=== PATIENT | female | born 1995 | race Caucasian/White ===

== ENCOUNTER 2020-04-18 15:02 | Inpatient (IN) | payer MEDICAID ==
[~2020-04-18] VITALS: Ht 157.5 cm; Wt 68.2 kg
[2020-04-18 15:44] LABS: AMPHETAMINE SCREEN, URINE Negative (Negative); BARBITURATE SCREEN, URINE Negative (Negative); BENZODIAZEPINE SCREEN, URINE Negative (Negative); CANNABINOID SCREEN, URINE Positive (Negative); COCAINE SCREEN, URINE Negative (Negative); METHADONE SCREEN, URINE Negative (Negative); OPIATE SCREEN, URINE Negative (Negative)
[2020-04-18] MEDS ORDERED: PREN1TAB60 PO (15:47)
[2020-04-18 15:48] VITALS: BP 139/64
[2020-04-18 15:55] LABS: MICROSCOPIC INDICATED
[2020-04-18] MEDS ORDERED: LIDOCAINE 1%, 20ML ONE (18:00)
[2020-04-18] MEDS ORDERED: NEWBORN KIT ONE (18:00)
[2020-04-18] MEDS ORDERED: MISOPROSTOL 200 MCG TABLET ONE (18:01)
[2020-04-18] MEDS ORDERED: OXYTOCIN 30U/ 0.9% NaCL 500ML 500 ML ONE (18:01)
[2020-04-18] MEDS ORDERED: D5%-LACTATED RINGERS 1,000 ML IV SCH (18:02)
[2020-04-18] MEDS ORDERED: LACTATED RINGERS 1,000 ML IV SCH (18:02)
[2020-04-18] MEDS ORDERED: OXYTOCIN 30U/ 0.9% NaCL 500ML 500 ML IV ONE (18:02)
[2020-04-18] MEDS ORDERED: OXYTOCIN 30U/ 0.9% NaCL 500ML 500 ML IV PRN (18:02)
[2020-04-18] MEDS ORDERED: FENTANYL PF 100 MCG/2ML ONE (18:15)
[2020-04-18] MEDS ORDERED: FENTANYL PF 100 MCG/2ML IV PRN (18:30)
[2020-04-18] MEDS ORDERED: CALCIUM CARBONATE 500 MG TAB.CHEW PO PRN (18:30)
[2020-04-18] MEDS ORDERED: TERBUTALINE 1 MG/ML, 1ML IVPush PRN (18:30)
[2020-04-18] MEDS ORDERED: TERBUTALINE 1 MG/ML, 1ML SQ PRN (18:30)
[2020-04-18] MEDS ORDERED: ONDANSETRON 2MG/ML, 2ML IVPush PRN (18:30)
[2020-04-18] MEDS ORDERED: FENTANYL PF 100 MCG/2ML IVPush PRN (18:30)
[2020-04-18] MEDS: OXYTOCIN 30U/ 0.9% NaCL 500ML 500 ML IV SCH (18:42)
[2020-04-18 18:51] LABS: MEAN CORPUSCULAR HEMOGLOBIN 32.1 pg (27.0-34.8); MEAN CORPUSCULAR HGB CONC 33.9 g/dL (32.4-35.8); MEAN CORPUSCULAR VOLUME 94.8 fL (80-100); MEAN PLATELET VOLUME 8.6 fL (7.4-10.4); PLATELET COUNT 328 x10^3/uL (130-400); RED BLOOD COUNT 4.71 x10^6/uL (3.82-5.3); RED CELL DISTRIBUTION WIDTH 12.7 % (9.6-15.2)
[2020-04-18] MEDS ORDERED: OXYcodone IR 5MG TABLET PO PRN (19:00)
[2020-04-18] MEDS ORDERED: DOCUSATE 100 MG CAPSULE PO PRN (19:00)
[2020-04-18] MEDS ORDERED: CARBOPROST TROMETHAMINE 250 MCG/ML, 1ML IM PRN (19:00)
[2020-04-18] MEDS ORDERED: SIMETHICONE 80 MG CHEW TAB PO PRN (19:00)
[2020-04-18] MEDS ORDERED: ONDANSETRON 2MG/ML, 2ML IV PRN (19:00)
[2020-04-18] MEDS ORDERED: METOCLOPRAMIDE 5 MG/ML, 2ML IV PRN (19:00)
[2020-04-18] MEDS ORDERED: IBUPROFEN 800 MG TABLET PO PRN (19:00)
[2020-04-18] MEDS ORDERED: METHYLERGONOVINE 0.2 MG/ML IM PRN (19:00)
[2020-04-18] MEDS ORDERED: MISOPROSTOL 200 MCG TABLET PR PRN (19:00)
[2020-04-18] MEDS ORDERED: ACETAMINOPHEN 325 MG TABLET PO PRN (19:00)
[2020-04-18] MEDS ORDERED: IBUPROFEN 800 MG TABLET ONE (19:04)
[2020-04-18 19:14] LABS: BASOPHILS # (AUTO) 0.01 x10^3/uL (0-0.1); BASOPHILS % (AUTO) 0 % (0-1); EOSINOPHILS % (AUTO) 0 % (1-7); LYMPHOCYTES # (AUTO) 1.51 x10^3/uL (1-3.4); LYMPHOCYTES % (AUTO) 8 % (22-44); MD SCAN; MONOCYTES # (AUTO) 0.24 x10^3/uL (0.2-0.8); MONOCYTES % (AUTO) 1 % (2-9); NEUTROPHILS # (AUTO) 16.64 x10^3/uL (1.8-6.8); NEUTROPHILS % (AUTO) 90 % (42-75)
[2020-04-18 20:45] VITALS: BP 105/64
[2020-04-19] VITALS: BP 100/60
[2020-04-19] MEDS: OXYTOCIN 30U/ 0.9% NaCL 500ML 500 ML IV SCH ×2 (04:42→14:42)
[2020-04-19 05:00] VITALS: BP 94/54
[2020-04-19 06:28] LABS: BASOPHILS # (AUTO) 0.05 x10^3/uL (0-0.1); BASOPHILS % (AUTO) 0 % (0-1); EOSINOPHILS # (AUTO) 0.01 x10^3/uL (0-0.4); EOSINOPHILS % (AUTO) 0 % (1-7); LYMPHOCYTES % (AUTO) 16 % (22-44); MD NO; MEAN CORPUSCULAR HEMOGLOBIN 32.1 pg (27.0-34.8); MEAN CORPUSCULAR HGB CONC 33.7 g/dL (32.4-35.8); MEAN CORPUSCULAR VOLUME 95.1 fL (80-100); MONOCYTES % (AUTO) 7 % (2-9); NEUTROPHILS # (AUTO) 12.48 x10^3/uL (1.8-6.8); NEUTROPHILS % (AUTO) 77 % (42-75); PLATELET COUNT 267 x10^3/uL (130-400); RED BLOOD COUNT 4.03 x10^6/uL (3.82-5.3); RED CELL DISTRIBUTION WIDTH 13.2 % (9.6-15.2)
[2020-04-19 07:30] VITALS: BP 92/52
[2020-04-19] MEDS: PRENATAL VIT/IRON/FA 1 EACH TABLET PO SCH (09:00)
[2020-04-19 12:00] VITALS: BP 98/63
[2020-04-19 20:00] VITALS: BP 105/59
[2020-04-20] MEDS: OXYTOCIN 30U/ 0.9% NaCL 500ML 500 ML IV SCH (00:42)
[2020-04-20 08:00] VITALS: BP 93/55
[2020-04-20] MEDS: PRENATAL VIT/IRON/FA 1 EACH TABLET PO SCH (09:00)
[2020-04-20] MEDS: IBUPROFEN 600 MG TABLET PO PRN ×2 (11:40→17:42)
[2020-04-20] MEDS ORDERED: IBUP-1222 PO (11:50)
[2020-04-20] MEDS: OXYcodone/APAP 5/325MG TABLET PO PRN ×2 (12:29→17:43)
== END 2020-04-20 19:23 | disposition home or self-care (01) | DRG 806 ==
LOC: LDOP 15:02 → OBSVTOIN 17:11 → LDIP 17:11 → 2NW 20:35
PROVIDERS: ADMIT Student in an Organized Health Care Education/Training Program; ATTEND Student in an Organized Health Care Education/Training Program
PROC: 10E0XZZ Delivery of Products of Conception, External Approach (ICD-10-PCS; principal; 2020-04-18)
DX: O70.0 First degree perineal laceration during delivery (principal); O99.324 Drug use complicating childbirth; Z37.0 Single live birth; F12.90 Cannabis use, unspecified, uncomplicated; O99.02 Anemia complicating childbirth; D64.9 Anemia, unspecified; Z3A.38 38 weeks gestation of pregnancy; Z82.49 Family history of ischemic heart disease and other diseases of the circulatory system
CPT/HCPCS: 36415; 76819; 80307; 81001; 85025; 86592; 86850; 86900; G0378; J7120